=== PATIENT | male | born 2000 | race African-American/Black ===

== ENCOUNTER 2018-06-27 14:51 | Day surgery (SDC) | payer BC ==
[~2018-06-27 14:51] MED LIST: DEXAMETHASONE 4 MG/ML 1 ML INJ; METOCLOPRAMIDE 10 MG INJ; ROPIVACAINE 0.5 % 30 ML VIAL
[2018-06-27] MEDS ORDERED: CEFAZOLIN 2 GM/50 ML (PMX) 50 ML IVPB (15:00)
[2018-06-27] MEDS ORDERED: SOD CHLORIDE 0.9% 1,000 ML IV (15:00)
[2018-06-27] MEDS ORDERED: FENTAnyl 50 MCG/ML VIAL (16:14)
[2018-06-27] MEDS ORDERED: MIDAZOLAM 1 MG/ML 2 ML INJ (16:18)
[2018-06-27] MEDS ORDERED: CEFAZOLIN 1 GM INJ (16:19)
[2018-06-27] MEDS ORDERED: ONDANSETRON 4 MG INJ (16:27)
[2018-06-27] MEDS ORDERED: MEPERIDINE 25 MG INJ IV (17:00)
[2018-06-27] MEDS ORDERED: HYDROmorphONE 1 MG/5 ML IV SYRINGE IV ×3 (17:00)
[2018-06-27] MEDS ORDERED: DIPHENHYDRAMINE 50 MG INJ IV (17:00)
[2018-06-27] MEDS ORDERED: FENTAnyl 50 MCG/ML VIAL IV ×2 (17:00)
[2018-06-27] MEDS ORDERED: LEVALBUTEROL (NEB) 1.25 MG/0.5 ML AMP HHN (17:00)
[2018-06-27] MEDS: POLYMYXIN/BACITRACIN 1L IRRIG IRR (18:06)
[2018-06-27] MEDS: BUPIVACAINE 0.25% (MPF) 30 ML INJ (18:06)
[2018-06-27] MEDS: KETOROLAC 30 MG INJ IV (19:39)
[2018-06-27] MEDS: HYDROCODONE/APAP (5/325) TAB PO (19:39)
[2018-06-27] MEDS: ONDANSETRON 4 MG INJ IV (19:45)
== END 2018-06-27 21:38 | disposition home or self-care (01) ==
LOC: SDS 14:51
DX: K40.30 Unilateral inguinal hernia, with obstruction, without gangrene, not specified as recurrent (principal)
CPT/HCPCS: 49507